=== PATIENT | male | born 1975 | race Hispanic/Latino ===

== ENCOUNTER 2018-01-18 02:20 | Emergency (ER) | payer BC ==
[~2018-01-18 02:20] MED LIST: AMLO5TAB4 PO; BENZ-51 PO; LEVO500T2 PO; LISI-613 PO; METF500T6 PO; SIMV20TA6 PO
[2018-01-18] MEDS ORDERED: ACETAMINOPHEN-CODEINE ELIXIR 5 ML UDCUP ONE (02:56)
[2018-01-18] MEDS ORDERED: DEXAMETHASONE SOD PHOSPHATE 4 MG/ML 1ML VIAL ONE (02:56)
[2018-01-18] MEDS ORDERED: METHYLPREDNISOLONE SOD SUCC 40MG/ML 1ML ONE (02:56)
== END 2018-01-18 03:19 | disposition home or self-care (01) ==
LOC: EDH 02:20
DX: B34.9 Viral infection, unspecified (principal); J30.9 Allergic rhinitis, unspecified; E78.5 Hyperlipidemia, unspecified; I10 Essential (primary) hypertension; E11.9 Type 2 diabetes mellitus without complications
CPT/HCPCS: 93005; 96372 ×2; 99284; J1100; J2920

== ENCOUNTER 2020-11-28 04:13 | Emergency (ER) | payer BC, OTHER ==
[~2020-11-28 04:13] MED LIST changes: -LISI-613 PO; +LISI20TA24 PO; +METF-444 PO; -METF500T6 PO; +SIMV-43 PO; -SIMV20TA6 PO
[2020-11-28 05:05] LABS: BASOPHILS % (AUTO) 0.3 % (0.0-5.0); EOSINOPHILS % (AUTO) 1.5 % (0.0-8.0); HEMATOCRIT 50.6 % (42-54); LYMPHOCYTES % (AUTO) 24.7 % (21.0-51.0); MEAN CORPUSCULAR HEMOGLOBIN 28.4 pg (27.0-33.0); MEAN CORPUSCULAR HGB CONC 32.4 g/dL (32.0-36.0); MEAN CORPUSCULAR VOLUME 87.7 fL (79-99); MONOCYTES % (AUTO) 7.1 % (3.0-13.0); NEUTROPHILS % (AUTO) 65.9 % (40.0-77.0); PLATELET COUNT (AUTO) 205 K/uL (130-400); RED BLOOD CELL COUNT(AUTO) 5.77 MIL/uL (4.50-6.20); WHITE BLOOD COUNT (AUTO) 8.6 K/uL (4.8-10.8)
[2020-11-28 05:23] LABS: POTASSIUM 4.3 mmol/L (3.5-5.1)
[2020-11-28 05:28] LABS: ALBUMIN 3.8 g/dL (3.5-5.0); BILIRUBIN,TOTAL 0.9 mg/dL (0.2-1.0); TOTAL PROTEIN, SERUM 7.5 g/dL (6.0-8.3)
[2020-11-28] MEDS ORDERED: KETOROLAC TROMETHAMINE 30MG/ML ONE (05:33)
== END 2020-11-28 07:53 | disposition home or self-care (01) ==
LOC: EDH 04:13
DX: S22.31XA Fracture of one rib, right side, initial encounter for closed fracture (principal); S20.219A Contusion of unspecified front wall of thorax, initial encounter; I10 Essential (primary) hypertension; E78.5 Hyperlipidemia, unspecified; E11.9 Type 2 diabetes mellitus without complications; X58.XXXA Exposure to other specified factors, initial encounter; Y93.89 Activity, other specified; Y92.89 Other specified places as the place of occurrence of the external cause; Y99.8 Other external cause status
CPT/HCPCS: 36415; 71250; 80053; 85025; 96372; 99284; J1885

== ENCOUNTER 2022-01-02 06:16 | Day surgery (SDC) | payer OTHER ==
[2021-12-29 12:30] LABS: BASOPHILS % (AUTO) 0.4 % (0.0-5.0); EOSINOPHILS % (AUTO) 1.9 % (0.0-8.0); HEMATOCRIT 45.6 % (42-54); LYMPHOCYTES % (AUTO) 20.4 % (21.0-51.0); MEAN CORPUSCULAR HEMOGLOBIN 33.6 pg (27.0-33.0); MEAN CORPUSCULAR HGB CONC 39.7 g/dL (32.0-36.0); MEAN CORPUSCULAR VOLUME 84.6 fL (79-99); MONOCYTES % (AUTO) 5.5 % (3.0-13.0); NEUTROPHILS % (AUTO) 71.3 % (40.0-77.0); PLATELET COUNT (AUTO) 247 K/uL (130-400); RED BLOOD CELL COUNT(AUTO) 5.39 MIL/uL (4.50-6.20); RED CELL DISTRIBUTION WIDTH 13.7 % (11.0-15.5); WHITE BLOOD COUNT (AUTO) 10.6 K/uL (4.8-10.8)
[2021-12-29 13:20] LABS: ALBUMIN 3.7 g/dL (3.5-5.0); BILIRUBIN,TOTAL 0.7 mg/dL (0.2-1.0); POTASSIUM 5.2 mmol/L (3.5-5.1); TOTAL PROTEIN, SERUM 7.5 g/dL (6.0-8.3)
[2022-01-01 09:55] VITALS: BP 135/75
[2022-01-02] VITALS (19 sets, daily range): BP systolic 102–121; BP diastolic 51–74
[~2022-01-02] VITALS: Ht 167.6 cm; Wt 126.8 kg
[~2022-01-02 06:16] MED LIST changes: +AMLO-257 PO; -AMLO5TAB4 PO; +ATOR40TA71 PO; -BENZ-51 PO; +CETI-89 PO; +FENOFIBRATE PO; -LEVO500T2 PO; -METF-444 PO; +METF-446 PO; -SIMV-43 PO
[2022-01-02] MEDS ORDERED: LACTATED RINGERS 1000ML 0 ML IV ONE (06:20)
[2022-01-02] MEDS ORDERED: 0.9%NACL 1000ML 1,000 ML IV ONE (06:55)
[2022-01-02] MEDS: CEFAZOLIN SODIUM 1 GM VIAL ONE ×2 (06:58→08:16)
[2022-01-02] MEDS ORDERED: FAMOTIDINE 20MG VIAL IV ONE (07:15)
[2022-01-02] MEDS ORDERED: CEFAZOLIN SODIUM 1 GM VIAL ONE (07:33)
[2022-01-02] MEDS ORDERED: LIDOCAINE PF 100MG/5ML (2%) SYRINGE 5ML ONE (07:34)
[2022-01-02] MEDS ORDERED: SUCCINYLCHOLINE CHLORIDE 20 MG/ML 10 ML VIAL ONE (07:34)
[2022-01-02] MEDS ORDERED: PROPOFOL 10 MG/ML 20ML VIAL IV ONE (07:34)
[2022-01-02] MEDS ORDERED: MIDAZOLAM HCL 1 MG/ML 2ML VIAL ONE (07:34)
[2022-01-02] MEDS ORDERED: FENTANYL CITRATE PF 50 MCG/1 ML 2ML VIAL ONE ×2 (07:34→08:48)
[2022-01-02] MEDS ORDERED: ROCURONIUM 10MG/1ML SYR 10 MG/ML ML ONE (07:35)
[2022-01-02] MEDS ORDERED: ONDANSETRON 4MG INJ ONE (07:39)
[2022-01-02] MEDS ORDERED: BUPIVACAINE/PF 0.5% 30ML VIAL ONE (08:02)
[2022-01-02] MEDS ORDERED: MEPERIDINE-PF 25 MG/ML SYG ONE (08:37)
[2022-01-02] MEDS ORDERED: GLYCOPYRROLATE 1 MG/5 ML SYRINGE ONE (08:56)
[2022-01-02] MEDS ORDERED: NEOSTIGMINE 5MG/5ML SYR IV ONE (08:56)
== END 2022-01-02 11:45 | disposition home or self-care (01) ==
LOC: DAH 06:16
PROVIDERS: ATTEND Student in an Organized Health Care Education/Training Program
DX: K80.10 Calculus of gallbladder with chronic cholecystitis without obstruction (principal); I10 Essential (primary) hypertension; E78.5 Hyperlipidemia, unspecified; E11.9 Type 2 diabetes mellitus without complications; E66.9 Obesity, unspecified; Z79.899 Other long term (current) drug therapy; Z79.84 Long term (current) use of oral hypoglycemic drugs; Z98.890 Other specified postprocedural states
CPT/HCPCS: 36415; 47562; 71045; 80053; 82948 ×2; 85025; 87635; 93005; A4215; A4221; A4222; A4223; A4600; A4649 ×3; A4663; A6206; A6207; A6260; C1769 ×3; C9803; J0330; J0690 ×2; J2001; J2175; J2250; J2405; J2704; J2710; J3010 ×2; J3490 ×3; J7030 ×2; J7120

== ENCOUNTER → 2022-01-23 | Outpatient (CLI) | payer OTHER | END | disposition home or self-care (01) | LOC: RAH 08:17 | PROVIDERS: ATTEND Student in an Organized Health Care Education/Training Program | DX: K80.20 Calculus of gallbladder without cholecystitis without obstruction (principal); K21.9 Gastro-esophageal reflux disease without esophagitis | CPT/HCPCS: 74240 ==

== ENCOUNTER 2022-03-09 13:29 | Emergency (ER) | payer OTHER ==
[~2022-03-09] VITALS: Ht 167.6 cm; Wt 124.7 kg
[2022-03-09] MEDS ORDERED: VANCOMYCIN 1G VIAL IVPB ONE (14:30)
[2022-03-09] MEDS ORDERED: ZOSYN 3.375GM +NS 50ML IV SCH (14:30)
[2022-03-09] MEDS ORDERED: ACETAMINOPHEN WITH CODEINE 1 TAB TAB PO ONE (14:30)
[2022-03-09 14:36] LABS: BASOPHILS % (AUTO) 0.4 % (0.0-5.0); EOSINOPHILS % (AUTO) 0.7 % (0.0-8.0); HEMATOCRIT 47.3 % (42-54); LYMPHOCYTES % (AUTO) 13.2 % (21.0-51.0); MEAN CORPUSCULAR HEMOGLOBIN 28.7 pg (27.0-33.0); MEAN CORPUSCULAR HGB CONC 34.5 g/dL (32.0-36.0); MEAN CORPUSCULAR VOLUME 83.4 fL (79-99); MONOCYTES % (AUTO) 11.5 % (3.0-13.0); NEUTROPHILS % (AUTO) 73.7 % (40.0-77.0); PLATELET COUNT (AUTO) 149 K/uL (130-400); RED BLOOD CELL COUNT(AUTO) 5.67 MIL/uL (4.50-6.20); RED CELL DISTRIBUTION WIDTH 14.5 % (11.0-15.5); WHITE BLOOD COUNT (AUTO) 7.4 K/uL (4.8-10.8)
[2022-03-09 14:49] LABS: POTASSIUM 4.4 mmol/L (3.5-5.1)
[2022-03-09 14:54] LABS: ALBUMIN 3.5 g/dL (3.5-5.0); CRP QUANTITATIVE 116.3 mg/L (0.00-9.0); TOTAL PROTEIN, SERUM 7.9 g/dL (6.0-8.3)
[2022-03-09] MEDS ORDERED: INSULIN HUMULIN R 100 UNIT/ML 3ML IV ONE (15:00)
[2022-03-09] MEDS ORDERED: 0.9% NACL 500ML IV.SOLN 500 ML IV SCH (15:30)
[2022-03-09] MEDS ORDERED: CLIN-141 PO (15:32)
[2022-03-09] MEDS ORDERED: ACET-2247 PO (15:32)
[2022-03-09] MEDS ORDERED: SULF1TAB42 PO (15:32)
[2022-03-09] MEDS ORDERED: VANCOMYCIN 1G/250ML KIT 250 ML IV ONE (15:40)
[2022-03-09 17:01] VITALS: BP 121/73
== END 2022-03-09 17:01 | disposition home or self-care (01) ==
LOC: EDH 13:29
DX: L02.31 Cutaneous abscess of buttock (principal); E11.65 Type 2 diabetes mellitus with hyperglycemia; I10 Essential (primary) hypertension; E66.01 Morbid (severe) obesity due to excess calories; Z68.41 Body mass index [BMI] 40.0-44.9, adult
CPT/HCPCS: 99284; 96365; 96366; 96375; 80053; 85025; 87040 ×2; 87076; 87077; 87186; 82948 ×2; 83605; 86140; 36415; 96368; 87070; J1815; J2543; J3370